=== PATIENT | female | born 1970 | race Hispanic/Latino ===

== ENCOUNTER → 2018-06-25 | Day surgery (SDC) | payer OTHER ==
[~2018-06-25] MED LIST: AMLODIPINE BESY10 MG PO; BENAZEPRIL HCL10 MG PO; CRESTOR10 MG PO; HYDROCHLOROTHIA25 MG PO; METFORMIN HCL500 MG PO; MIDAZOLAM HCL 2 MG/2 ML VIAL ONE; PROPOFOL IV EMULSION 10 MG/ML 50 ML VIAL ONE
--- OUTSIDE RECORDS SUMMARY | 2018-06-25 06:10 | XMS REPORT ---
Author Organization Unknown Address [address] [place] [address] Phone [phone] Care Team Providers Care Field Application Engineer Name Role Phone ELIZABETH "DEXTER" BEATRIS RUFF 3 [phone] Allergies Code Code System Name Reaction Severity Status Onset Tylenol-codeine Active Medications Name Status Start Date Stop Date amlodipine 5 mg-benazepril 20 mg capsule Completed 06/05/2017 amlodipine 5 mg-benazepril 40 mg capsule Take 1 capsule every day by oral route. Active Not available Colace 100 mg capsule Take 1 capsule every day by oral route. Active Not available Januvia 100 mg tablet scott 1 tableta por via oral carly vez cada car[place] Active Not available lisinopril 20 mg tablet Take 1 tablet every day by oral route. Completed 06/03/2017 metformin 500 mg tablet Active Not available triamterene 37.5 mg-hydrochlorothiazide 25 mg tablet Active Not available Triamterene W/Hctz 37.5 mg-25 mg capsule Take 1 tablet by mouth daily Completed 06/03/2017 Problems Name Status Onset Date Source Essential Hypertension Active 04/11/2017 Prediabetes Active 04/11/2017 Mixed Hyperlipidemia Active 06/05/2017 Procedures Date Name Performed by 09/08/2015 Hysterectomy (Partial) Notes: right Salpingo-oopherectomy Information not available Appendectomy Information not available 04/11/2017 Electrocardiogram [facility] [address] [facility] [address] [place] [address] (Work Place) 06/03/2017 MAMMO, Screening, Bilateral [place] [facility] [address] [place] [address] (Work Place) Lab Results Date Name Specimen Result Interpretation Description Value Range Status Address 04/11/2017 CBC W/ Auto Diff Wbc 8.20 x10*3/L 3.98-10.04 x10*3/L [facility] Laboratory: [address] [place] Rbc 4.74 10*12/L 3.93-5.22 10*12/L Final [facility] [address] [facility] Hem[facility] 12.30 g/dL 11.20-15.70 g/dL Final [facility] Laboratory: [address] [place] Hematocrit 38.5 % 34.1-44.9 % Final [facility] [address] [facility] Mcv 81.2 fL 80.0-100.0 fL Final [facility] [address] [facility] Mch 25.9 pg 25.6-32.2 pg Final [facility] [address] [facility] Low Mchc 31.9 g/dL 32.2-35.5 g/dL Final [facility] [address] [facility] RDW-SD 45.2 fL 36.4-46.3 fL Final [facility] [address] [facility] Platelet Count 360.0 k/uL 182.0-369.0 k/uL Final [facility] Laboratory: [address] [place] [address] Mpv 11.0 fL 7.5-11.5 fL Final [facility]: [address] [facility] Neut% 58.7 % 34.0-71.1 % Final [facility] Laboratory: [address] [place] [address] Lymph% 33.3 % 19.3-51.7 % Final [facility]: [address] [facility] Mon% 5.4 % 4.7-12.5 % Final [facility] [address] [facility] Eos% 2.4 % 0.7-5.8 % Final [facility] [address] [facility] Baso% 0.2 % 0.1-1.2 % Final [facility] [address] [facility] Neut# 4.8 x10*3/L 1.6-6.1 x10*3/L Final [facility]: [address] [facility] Lymph# 2.7 x10*3/L 1.2-3.7 x10*3/L Final [facility] Laboratory: [address] [place] Mon# 0.4 x10*3/L 0.2-0.9 x10*3/L Final [facility] Laboratory: [address] [place] Eos# 0.20 x10*3/L 0.04-0.36 x10*3/L Final [facility] Laboratory: [address] [facility] [place] Baso# 0.02 x10*3/L 0.01-0.08 x10*3/L Final [facility] [address] [facility] 04/11/2017 CMP, Serum or Plasma High Alt 90 U/L 0-55 U/L Final [facility] Laboratory: [address] [place] [address] High Ast 54 U/L 5-34 U/L Final [facility] Laboratory: [address] Bun 10.0 mg/dL 7.0-18.7 mg/dL Final [facility] Laboratory: [address] Alk Phos 88 unit/L 40-150 unit/L Final [facility]: [address] High Glucose 107 mg/dL 70-99 mg/dL Final [facility] Laboratory: [address] Albumin 3.9 g/dL 3.5-5.0 g/dL Final [facility] Laboratory: [address] Creatinine 0.61 mg/dL 0.57-1.11 mg/dL Final [facility] Laboratory: [address] eGFR Non- >60 mL/min/1.73m2 >60 mL/min/1.73m2 Final [facility] Laboratory: [address] Total Bilirubin 0.5 mg/dL 0.2-1.2 mg/dL Final [facility] Laboratory: [address] eGFR - >60 mL/min/1.73m2 >60 mL/min/1.73m2 Final [facility] Laboratory: [address] Sodium 137 mEq/L 136-145 mEq/L Final [facility] Laboratory: [address] Potassium 4.1 mEq/L 3.5-5.1 mEq/L Final [facility] Laboratory: [address] Chloride 100 mmol/L 98-107 mmol/L Final [facility] Laboratory: [address] Total Protein 7.2 g/dL 6.4-8.3 g/dL Final [facility] Laboratory: [address] Calcium 9.0 mg/dL 8.4-10.2 mg/dL Final [facility] Laboratory: [address] Co2 27.0 mmol/L 22.0-29.0 mmol/L Final [facility] Laboratory: [address] Anion Gap 10 calc Final [facility] Laboratory: [address] 04/11/2017 Lipid Panel, Serum Hdl 59 mg/dL 40-60 mg/dL Final [facility] Laboratory: [address] Triglyceride 94 mg/dL 0-149 mg/dL Final [facility] Laboratory: [address] VLDL Calc. 19 mg/dL Final [facility] Laboratory: [address] cholesterol/HDL Ratio 3.6 mg/dL Final [facility] Laboratory: [address] non-HDL Cholesterol Calc. 155 mg/dL 0-160 mg/dL Final [facility] Laboratory: [address] High Cholesterol 214 mg/dL 0-199 mg/dL Final [facility] Laboratory: [address] High LDL Calc. 136 mg/dL 0-130 mg/dL Final [facility] Laboratory: [address] 04/11/2017 T4, Total, Serum T4 Total 8.78 ug/dL 4.87-11.72 ug/dL Final [facility] Laboratory: [address] 04/11/2017 TSH, Serum or Plasma Tsh 2.932 uIU/mL 0.350-4.940 uIU/mL Final [facility] Laboratory: [address] 04/11/2017 HbA1C (Hemoglobin a1C), Blood High A1C W/eag 6.3 % 1.0-5.7 % Final [facility] Laboratory: [address] [facility] [address], [place] Average Blood Glucose 134 mg/dL Final [facility] Laboratory: [address] [facility] [address], [place] 04/11/2017 Electrocardiogram Rate & Rhythm normal sinus rhythm [facility]: [address] [facility] [address], [place] Qrs normal [facility]: [address] [address], [place] Interval normal [facility]: [address] [facility] [address], [place] QRS Duration normal [facility]: [address] [facility] [address], [place] QT Interval normal [facility]: [address] [facility] [address], [place] 04/11/2017 Albumin:creatinine Ratio, Urine Type Urine Microlalbumin 10 mg/L [facility]: [address] [facility] [address], [place] Type Urine Creatinine 100 mg/dL [facility]: [address] [address], [place] Type A:C Ratio <30 mg/g (Normal) [facility]: [address] [facility] [address], [place] Past Encounters 06/05/2017 Essential Hypertension; Body Mass Index 30+ - Obesity; Mixed Hyperlipidemia; Prediabetes ANGELA Sam: [address] [place] [phone], Ph. 06/03/2017 Essential Hypertension; Prediabetes; Elevated Liver Enzymes Level; Body Mass Index 40+ - Severely Obese; Screening Mammography; Constipation ANGELA Sam: [address] [place] [phone], Ph. 04/11/2017 Adult Health Examination; Body Mass Index 40+ - Severely Obese; Morbid Obesity; Essential Hypertension; Prediabetes Elizabeth Tavares MD: [address] [phone], Ph. Social History Smoking Status Never Smoker Vaccine List None recorded. Plan of Care Reminders Provider Appointments None recorded. Lab None recorded. Referral None recorded. Procedures None recorded. Surgeries None recorded. Imaging None recorded. 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
== END | disposition home or self-care (01) ==
LOC: OR 06:07
PROVIDERS: ATTEND Internal Medicine Gastroenterology
DX: K59.00 Constipation, unspecified (principal); K64.8 Other hemorrhoids; I10 Essential (primary) hypertension; Z71.3 Dietary counseling and surveillance; E11.9 Type 2 diabetes mellitus without complications; E66.01 Morbid (severe) obesity due to excess calories; Z01.810 Encounter for preprocedural cardiovascular examination; Z79.84 Long term (current) use of oral hypoglycemic drugs; Z68.41 Body mass index [BMI] 40.0-44.9, adult
CPT/HCPCS: 36415; 45378; 82948; 93005; J2250